=== PATIENT | male | born 1985 | race Caucasian/White ===

== ENCOUNTER 2019-12-26 14:26 | Emergency (ER) | payer SELFPAY ==
[~2019-12-26] VITALS: Ht 177.8 cm; Wt 79.4 kg
[~2019-12-26 14:26] MED LIST: AMOXICILLIN500 MG PO; ANAPROX DS550 MG PO; CLARITIN10 MG PO; MOTRIN800 MG PO; TRAMADOL HCL50 MG PO; TRIMOX500 MG PO; VICODIN 5/500 505 MG PO; ZITHROMAX Z PA250 MG PO
[2019-12-26] MEDS ORDERED: NORCO 5-325 TA1 EACH PO (15:02)
== END 2019-12-26 16:03 | disposition home or self-care (01) ==
LOC: ED 14:26
DX: S62.336A Displaced fracture of neck of fifth metacarpal bone, right hand, initial encounter for closed fracture (principal); G43.909 Migraine, unspecified, not intractable, without status migrainosus; F17.200 Nicotine dependence, unspecified, uncomplicated; Z88.1 Allergy status to other antibiotic agents; Z79.899 Other long term (current) drug therapy; W20.8XXA Other cause of strike by thrown, projected or falling object, initial encounter; Y93.89 Activity, other specified; Y92.098 Other place in other non-institutional residence as the place of occurrence of the external cause; Y99.8 Other external cause status

== ENCOUNTER 2020-06-18 10:49 | Emergency (ER) | payer SELFPAY ==
[~2020-06-18] VITALS: Wt 90.7 kg
[~2020-06-18 10:49] MED LIST changes: +NORCO 5-325 TA1 EACH PO
[2020-06-18 12:07] LABS: BASO # 0.1 10*3/uL (0.0-0.1); BASO % 0.8 % (0.0-1.0); EOS # 0.3 10*3/uL (0.0-0.4); EOS % 4.5 % (1.0-4.0); HEMATOCRIT 46.2 % (42.0-52.0); LYMPH # 2.8 10*3/uL (1.3-4.4); LYMPH % 45.6 % (27.0-41.0); MEAN CELL VOLUME 89.5 fl (80.0-94.0); MEAN CORPUSCULAR HGB 29.3 pg (27.0-31.0); MEAN CORPUSCULAR HGB CONC 32.7 g/dl (33.0-37.0); MEAN PLATELET VOLUME 9.5 fl (9.6-12.3); MONO # 0.5 10*3/uL (0.1-1.0); MONO % 7.9 % (3.0-9.0); NEUT # 2.5 10*3/uL (2.3-7.9); PLATELET COUNT AUTOMATED 277 10*3/uL (130-400); RED BLOOD COUNT 5.16 10*6/uL (4.50-5.90); RED CELL DISTRI WIDTH 14.3 % (0-14.5); WHITE BLOOD COUNT 6.2 10*3/uL (4.8-10.8)
[2020-06-18 12:22] LABS: ALBUMIN 3.6 gm/dl (3.1-4.5); ALKALINE PHOSPHATASE 87 U/L (45-117); BUN 17 mg/dl (7-24); CHLORIDE 117 mmol/L (98-107); CREATININE 1.14 mg/dL (0.70-1.30); SGOT/AST 17 IU/L (3-35); SGPT/ALT 33 U/L (12-78); SODIUM 149 mmol/L (136-145); TOTAL PROTEIN 7.2 gm/dL (6.4-8.2)
[2020-06-18] MEDS ORDERED: SEPTDS PO (16:29)
== END 2020-06-18 16:45 | disposition home or self-care (01) ==
LOC: ED 10:49
PROVIDERS: Emergency Medicine
DX: L03.314 Cellulitis of groin (principal); Z88.8 Allergy status to other drugs, medicaments and biological substances; Z79.899 Other long term (current) drug therapy

== ENCOUNTER 2020-10-12 19:04 | Emergency (ER) | payer SELFPAY ==
[~2020-10-12] VITALS: Ht 180.3 cm; Wt 90.7 kg
[~2020-10-12 19:04] MED LIST changes: +SEPTDS PO
[2020-10-12 19:42] LABS: BASO # 0.1 10*3/uL (0.0-0.1); BASO % 0.7 % (0.0-1.0); EOS # 0.3 10*3/uL (0.0-0.4); EOS % 3.4 % (1.0-4.0); HEMATOCRIT 42.1 % (42.0-52.0); LYMPH # 3.5 10*3/uL (1.3-4.4); LYMPH % 36.1 % (27.0-41.0); MEAN CELL VOLUME 84.5 fl (80.0-94.0); MEAN CORPUSCULAR HGB 29.1 pg (27.0-31.0); MEAN CORPUSCULAR HGB CONC 34.4 g/dl (33.0-37.0); MEAN PLATELET VOLUME 9.9 fl (9.6-12.3); MONO # 0.8 10*3/uL (0.1-1.0); MONO % 7.9 % (3.0-9.0); NEUT % 51.8 % (47.0-73.0); PLATELET COUNT AUTOMATED 320 10*3/uL (130-400); RED BLOOD COUNT 4.98 10*6/uL (4.50-5.90); RED CELL DISTRI WIDTH 14.4 % (0-14.5); WHITE BLOOD COUNT 9.7 10*3/uL (4.8-10.8)
[2020-10-12 19:58] LABS: ALKALINE PHOSPHATASE 95 U/L (45-117); BUN 8 mg/dl (7-24); CHLORIDE 114 mmol/L (98-107); CREATININE 1.22 mg/dL (0.70-1.30); LIPASE 83 U/L (73-393); POTASSIUM 2.7 mmol/L (3.5-5.1); SGOT/AST 56 IU/L (3-35); SGPT/ALT 92 U/L (12-78); SODIUM 146 mmol/L (136-145); TOTAL PROTEIN 7.6 gm/dL (6.4-8.2)
[2020-10-12 20:03] LABS: TROPONIN I < 0.015 ng/ml (<0.045)
[2020-10-12 23:21] LABS: ALBUMIN 3.6 gm/dl (3.1-4.5); ALKALINE PHOSPHATASE 84 U/L (45-117); BUN 8 mg/dl (7-24); CHLORIDE 115 mmol/L (98-107); CREATININE 1.06 mg/dL (0.70-1.30); POTASSIUM 2.9 mmol/L (3.5-5.1); SGOT/AST 47 IU/L (3-35); SGPT/ALT 77 U/L (12-78); SODIUM 145 mmol/L (136-145); TOTAL PROTEIN 6.5 gm/dL (6.4-8.2)
[2020-10-13] MEDS ORDERED: FLAGYL500 MG PO (00:57)
[2020-10-13] MEDS ORDERED: CIPRO500 MG PO (00:57)
[2020-10-13] MEDS ORDERED: K-TAB20 MEQ PO (00:59)
[2020-10-13] MEDS ORDERED: PROCTOSOL-HC28.35 GM T (01:01)
[2020-10-13 02:11] LABS: ALBUMIN 3.6 gm/dl (3.1-4.5); ALKALINE PHOSPHATASE 92 U/L (45-117); BUN 8 mg/dl (7-24); CHLORIDE 117 mmol/L (98-107); CREATININE 1.08 mg/dL (0.70-1.30); POTASSIUM 3.5 mmol/L (3.5-5.1); SGOT/AST 45 IU/L (3-35); SGPT/ALT 80 U/L (12-78); SODIUM 147 mmol/L (136-145); TOTAL PROTEIN 6.8 gm/dL (6.4-8.2)
== END 2020-10-13 03:15 | disposition home or self-care (01) ==
LOC: ED 19:04
PROVIDERS: Emergency Medicine; Physician Assistant
DX: K64.5 Perianal venous thrombosis (principal); K52.9 Noninfective gastroenteritis and colitis, unspecified; E87.6 Hypokalemia; Z88.1 Allergy status to other antibiotic agents; Z79.899 Other long term (current) drug therapy; Z79.2 Long term (current) use of antibiotics

== ENCOUNTER 2020-11-11 20:35 | Emergency (ER) | payer OTHER ==
[~2020-11-11] VITALS: Ht 177.8 cm; Wt 90.7 kg
[~2020-11-11 20:35] MED LIST changes: +CIPRO500 MG PO; +FLAGYL500 MG PO; +K-TAB20 MEQ PO; +PROCTOSOL-HC28.35 GM T
[2020-11-11] MEDS ORDERED: LEVOFLOXACIN500 MG PO (23:51)
[2020-11-11] MEDS ORDERED: ERYTHROMYCIN OPH1 GM OPH (23:51)
[2020-11-11] MEDS ORDERED: NAPHCON-A EYE D15 ML OP (23:51)
== END 2020-11-12 00:32 | disposition home or self-care (01) ==
LOC: ED 20:35
DX: S00.81XA Abrasion of other part of head, initial encounter (principal); H57.11 Ocular pain, right eye; J32.9 Chronic sinusitis, unspecified; Z88.8 Allergy status to other drugs, medicaments and biological substances; Z79.899 Other long term (current) drug therapy; V89.2XXA Person injured in unspecified motor-vehicle accident, traffic, initial encounter; Y93.89 Activity, other specified; Y92.89 Other specified places as the place of occurrence of the external cause; Y99.8 Other external cause status

== ENCOUNTER 2021-03-02 17:42 | Emergency (ER) | payer SELFPAY ==
[~2021-03-02] VITALS: Ht 180.3 cm; Wt 77.1 kg
[~2021-03-02 17:42] MED LIST changes: +ERYTHROMYCIN OPH1 GM OPH; +LEVOFLOXACIN500 MG PO; +NAPHCON-A EYE D15 ML OP
[2021-03-02 19:23] LABS: BASO # 0.1 10*3/uL (0.0-0.1); BASO % 0.7 % (0.0-1.0); EOS # 0.2 10*3/uL (0.0-0.4); EOS % 1.4 % (1.0-4.0); HEMATOCRIT 49.7 % (42.0-52.0); LYMPH % 29.1 % (27.0-41.0); MEAN CELL VOLUME 86.7 fl (80.0-94.0); MEAN CORPUSCULAR HGB 29.1 pg (27.0-31.0); MEAN CORPUSCULAR HGB CONC 33.6 g/dl (33.0-37.0); MEAN PLATELET VOLUME 9.7 fl (9.6-12.3); MONO % 7.4 % (3.0-9.0); NEUT # 8.4 10*3/uL (2.3-7.9); PLATELET COUNT AUTOMATED 302 10*3/uL (130-400); RED BLOOD COUNT 5.73 10*6/uL (4.50-5.90); RED CELL DISTRI WIDTH 14.9 % (0-14.5); WHITE BLOOD COUNT 13.7 10*3/uL (4.8-10.8)
[2021-03-02 19:38] LABS: ALBUMIN 4.1 gm/dl (3.1-4.5); CREATININE 1.61 mg/dL (0.70-1.30); POTASSIUM 3.7 mmol/L (3.5-5.1); TOTAL PROTEIN 8.9 gm/dL (6.4-8.2)
[2021-03-02] MEDS ORDERED: ZOFRAN4 MG PO (20:50)
[2021-03-02 20:59] LABS: BILIRUBIN Negative (Negative); BLOOD 2+ (Negative); CLARITY Clear (Clear); COLOR Yellow (Yellow); GLUCOSE Negative (Negative); KETONE Negative (Negative); LEUKO ESTERASE Negative (Negative); NITRITE Negative (Negative); PH 5.5 (4.5-8.0); SPECIFIC GRAVITY >= 1.030 (1.001-1.030)
[2021-03-02 21:08] LABS: RBC 21-30 rbc/hpf (0-2)
[2021-03-02 21:09] LABS: BACTERIA 1+; EPITHELIAL CELLS 0-2; HYALINE CAST 51-100
== END 2021-03-02 20:51 | disposition home or self-care (01) ==
LOC: ED 17:42
PROVIDERS: Physician Assistant
DX: T67.5XXA Heat exhaustion, unspecified, initial encounter (principal); R10.9 Unspecified abdominal pain; R11.2 Nausea with vomiting, unspecified; Z88.1 Allergy status to other antibiotic agents; Z79.2 Long term (current) use of antibiotics; Z79.899 Other long term (current) drug therapy; X30.XXXA Exposure to excessive natural heat, initial encounter; Y93.89 Activity, other specified; Y92.89 Other specified places as the place of occurrence of the external cause; Y99.8 Other external cause status

== ENCOUNTER 2021-04-13 23:54 | Emergency (ER) | payer SELFPAY ==
[~2021-04-13] VITALS: Ht 180.3 cm; Wt 99.8 kg
[~2021-04-13 23:54] MED LIST changes: +ZOFRAN4 MG PO
[2021-04-14 01:05] LABS: BASO # 0.1 10*3/uL (0.0-0.1); EOS # 0.4 10*3/uL (0.0-0.4); EOS % 3.3 % (1.0-4.0); HEMATOCRIT 44.8 % (42.0-52.0); LYMPH # 2.5 10*3/uL (1.3-4.4); LYMPH % 19.7 % (27.0-41.0); MEAN CELL VOLUME 87.8 fl (80.0-94.0); MEAN CORPUSCULAR HGB 29.2 pg (27.0-31.0); MEAN CORPUSCULAR HGB CONC 33.3 g/dl (33.0-37.0); MEAN PLATELET VOLUME 10.1 fl (9.6-12.3); MONO # 1.3 10*3/uL (0.1-1.0); MONO % 10.1 % (3.0-9.0); NEUT # 8.2 10*3/uL (2.3-7.9); NEUT % 65.7 % (47.0-73.0); PLATELET COUNT AUTOMATED 284 10*3/uL (130-400); WHITE BLOOD COUNT 12.5 10*3/uL (4.8-10.8)
[2021-04-14 01:24] LABS: ALBUMIN 3.8 gm/dl (3.1-4.5); ALKALINE PHOSPHATASE 106 U/L (45-117); BUN 12 mg/dl (7-24); CHLORIDE 112 mmol/L (98-107); CREATININE 1.27 mg/dL (0.70-1.30); POTASSIUM 3.7 mmol/L (3.5-5.1); SGOT/AST 37 IU/L (3-35); SODIUM 147 mmol/L (136-145); TOTAL PROTEIN 7.6 gm/dL (6.4-8.2)
[2021-04-14 01:25] LABS: SGPT/ALT 56 U/L (12-78)
== END 2021-04-14 02:37 | disposition home or self-care (01) ==
LOC: ED 23:54
PROVIDERS: Internal Medicine
DX: R09.81 Nasal congestion (principal); Z20.822 Contact with and (suspected) exposure to COVID-19; R50.9 Fever, unspecified; Z88.1 Allergy status to other antibiotic agents

== ENCOUNTER 2023-12-05 20:46 | Emergency (ER) | payer BC ==
[~2023-12-05] VITALS: Ht 180.3 cm; Wt 97.5 kg
[2023-12-05] MEDS ORDERED: ACETAMINOPHEN 325 MG TAB PO ONE (21:15)
[2023-12-05] MEDS ORDERED: Ondansetron Hydrochloride 4 MG TAB PO ONE (21:20)
[2023-12-05] MEDS ORDERED: AZITHROMYCIN 250 MG TAB PO ONE (23:50)
[2023-12-05] MEDS ORDERED: AVPAK AZITHROM250 M1 PO (23:51)
== END 2023-12-05 23:47 | disposition home or self-care (01) ==
LOC: ED 20:46
DX: J18.9 Pneumonia, unspecified organism (principal); Z20.822 Contact with and (suspected) exposure to COVID-19; R11.0 Nausea; R19.7 Diarrhea, unspecified; G43.909 Migraine, unspecified, not intractable, without status migrainosus; Z88.1 Allergy status to other antibiotic agents; Z88.8 Allergy status to other drugs, medicaments and biological substances; Z98.890 Other specified postprocedural states

== ENCOUNTER 2025-04-19 23:52 | Emergency (ER) | payer SELFPAY ==
[~2025-04-19 23:52] MED LIST changes: +AVPAK AZITHROM250 M1 PO
[2025-04-20] MEDS ORDERED: Sulfamethoxazole/Trimethopri 1 TAB TAB PO ONE (00:20)
[2025-04-20] MEDS ORDERED: SEPTDS PO (00:21)
== END 2025-04-20 00:27 | disposition home or self-care (01) ==
LOC: ED 23:52
DX: L02.01 Cutaneous abscess of face (principal); Z88.1 Allergy status to other antibiotic agents; Z79.899 Other long term (current) drug therapy

== ENCOUNTER 2025-06-14 14:08 | Emergency (ER) | payer SELFPAY ==
[~2025-06-14] VITALS: Ht 180.3 cm; Wt 95.3 kg
[2025-06-14] MEDS ORDERED: LISSAMINE GREEN 1.5 MG STRIP OP ONE (14:55)
[2025-06-14] MEDS ORDERED: Tetracaine Hydrochloride 0.5% 4 ML BOT OPH ONE (14:55)
[2025-06-14] MEDS ORDERED: IBUPROFEN 800 MG TAB PO ONE (16:15)
[2025-06-14] MEDS ORDERED: Motrin,Rufen800 MG PO (16:15)
[2025-06-14] MEDS ORDERED: KETOROLAC TROMETH. 0.5% OPTH SOL OPH SCH (18:00)
== END 2025-06-14 16:56 | disposition home or self-care (01) ==
LOC: ED 14:08
DX: H11.32 Conjunctival hemorrhage, left eye (principal); G43.909 Migraine, unspecified, not intractable, without status migrainosus; F17.210 Nicotine dependence, cigarettes, uncomplicated; Z88.1 Allergy status to other antibiotic agents; Z88.8 Allergy status to other drugs, medicaments and biological substances